=== PATIENT | female | born 1975 | race Caucasian/White ===

== ENCOUNTER 2022-07-17 16:14 | Emergency (ER) | payer OTHER, SELFPAY ==
[2022-07-17 16:22] VITALS: BP 169/96; PULSE 83; RESP 20; TEMP 36.8; O2SAT 97; BMI 48.7
--- NOTE | 2022-07-17 16:49 | CRLHL7_ITS ---
For Patients: As a result of the Century Cures Act, medical imaging exams and procedure reports are released immediately into your electronic medical record. You may view this report before your referring provider. If you have questions, please contact your health care provider. Indication: Right wrist FOOSH injury Technique: Right wrist 3 view. Comparison: None. Findings: There is an acute comminuted displaced fracture of the distal radius. Fracture lines extend to the articular surface. Radiocarpal alignment appears maintained, however there is suboptimal positioning on lateral view which limits evaluation. Small round corticated osseous density adjacent to the distal ulna appears chronic. Soft tissue swelling about the wrist. Impression: Acute comminuted displaced intra-articular fracture of the distal radius. Dictated by Amanda Sandoval MD @ 07/17/2022 5:42:42 PM (Electronically Signed)
--- NOTE | 2022-07-17 16:50 | ED_ITS ---
HPI - Extremity Injury (Upper) General Chief Complaint: Extremity Pain/Injury, Upper Stated Complaint: POSSIBLE BROKEN RIGHT WRIST Time Seen by Provider: 07/17/22 16:25 History of Present Illness HPI narrative: This 46-year-old female comes in with an injury to her right wrist. She tripped and fell onto her outstretched right hand and felt a snap in her right wrist. She did also bump her head but did not have loss of consciousness. She does report some mild headache. She does not report any other injury. She is not on any anticoagulants. Related Data Home Medications Medication Instructions Recorded Confirmed amitriptyline 25 mg tablet 25 mg PO HS 07/17/22 07/17/22 fluoxetine 10 mg capsule 30 mg PO DAILY 07/17/22 07/17/22 hydroxyzine HCl 25 mg tablet 25 mg PO Q6H PRN 07/17/22 07/17/22 pregabalin 300 mg capsule 300 mg PO Q12H 07/17/22 07/17/22 Allergies Allergy/AdvReac Type Severity Reaction Status Date / Time bee venom protein (honey bee) Allergy Anaphylaxis Verified 07/17/22 16:28 Sulfa (Sulfonamide Allergy Verified 07/17/22 16:28 Antibiotics) acetaminophen [From Vicodin] AdvReac Verified 07/17/22 16:28 hydrocodone [From Vicodin] AdvReac Verified 07/17/22 16:28 Review of Systems Status of ROS: Reports: 10 or more systems reviewed and unremarkable except as noted in History and below Narrative: Constitutional: No fevers, no weight gain or loss. Eyes: No discharge. No vision changes. HENT: No congestion, no sore throat, no ear pain. Cardiovascular: No chest pain, no palpitations. Respiratory: No shortness of breath, no wheezes, no cough. Gastrointestinal: No abdominal pain, no vomiting, no diarrhea. Genitourinary: No dysuria, no hematuria. Musculoskeletal: Right wrist injury with associated decreased range of motion. Skin: No rashes, no pruritis. Neurological: No dizziness, weakness, sensory change, speech change. Endo/Heme/Allergies: No bruising or bleeding. No polydipsia. Pysch: no suicidality, no anxiety, no insomnia. All other systems reviewed and are negative. PFSH PFSH Social History Smoking Status: Unknown if ever smoked Do you use any of these nicotine containing products: None Non-prescribed substance use: denies use Exam Narrative: Exam Narrative: Constitutional: Well-developed, well-nourished, no acute distress. HEENT: Normocephalic, atraumatic. Neck: Normal range of motion. Nontender. Supple. Heart: Regular. No murmurs. Normal rate. Intact distal pulses. Lungs: Clear to auscultation. No chest discomfort. No wheezes, rhonchi, or rales. Abdomen: Normal bowel sounds. Nontender. No rebound tenderness. Genitalia: Deferred. Back: No midline tenderness. Normal range of motion. Extremities: Severe pain in the right wrist with unwillingness to move the wrist joint or fingers. There is diffuse swelling and no obvious external sign of deformity. Skin: Intact. No rash. Warm. No erythema or pallor. Neurologic: No altered sensation. No weakness. Alert and oriented. Psychiatric: No suicidality. No anxiety or depression. No insomnia. Nursing notes and vitals signs are reviewed. Const: Vital Signs, click to edit/add: Vital Signs - 24 hr 07/17/22 16:22 Temperature 98.3 F Pulse Rate [Right Femoral] 83 Respiratory Rate 20 Blood Pressure [Le ft Upper Arm] 169/96 H Pulse Oximetry 97 Oxygen Delivery Me thod Room Air Course Vital Signs Vital signs: Initial Vital Signs Temperature 98.3 F 07/17/22 16:22 Temperature Source Temporal Artery Scan 07/17/22 16:22 Pulse Rate 83 07/17/22 16:22 Respiratory Rate 20 07/17/22 16:22 Blood Pressure 169/96 H 07/17/22 16:22 Blood Pressure Mean 120 07/17/22 16:22 Pulse Oximetry 97 07/17/22 16:22 Oxygen Delivery Method 07/17/22 16:22 Vital Signs Temperature 98.3 F 07/17/22 16:22 Pulse Rate 83 07/17/22 16:22 Respiratory Rate 20 07/17/22 16:22 Blood Pressure 169/96 H 07/17/22 16:22 Pulse Oximetry 97 07/17/22 16:22 Oxygen Delivery Method 07/17/22 16:22 Temperature 98.3 F 07/17/22 16:22 Pulse Rate 83 07/17/22 16:22 Respiratory Rate 20 07/17/22 16:22 Blood Pressure 169/96 H 07/17/22 16:22 Pulse Oximetry 97 07/17/22 16:22 Oxygen Delivery Method 07/17/22 16:22 MDM - Extremity Injury (Upper) MDM Narrative Medical decision making narrative: This patient comes in with an injury to her right wrist. X-ray images show an acute comminuted intra-articular fracture of the distal radius. The alignment is reasonably good for now so no adjustment was done before placing North a glass splint. The patient is instructed to follow-up with orthopedic clinic for further evaluation and management of this injury. An appointment is arranged with orthopedic clinic for this to occur. The patient did receive an oral tablet of oxycodone and a prescription for more of the same. An ortho glass splint that was applied by me also brought significant pain relief. Additionally she also received a sling for her right upper extremity. Imaging Data XR R Wrist: Radiologist's impression: Acute comminuted displaced intra-articular fracture of the distal radius. Discharge Plan Discharge Clinical Impression: Fracture of wrist Patient Disposition: Home, Self-Care Condition: Unchanged Instructions: Wrist Fracture in Adults (ED) Additional Instructions: Wear splint and sling. Follow-up with orthopedic clinic as scheduled. Use pain medicine as needed and directed. Prescriptions: No Action amitriptyline 25 mg tablet 25 mg PO HS Label Comments: TAKE ONE TABLET BY MOUTH ONE TIME DAILY AT BEDTIME fluoxetine 10 mg capsule 30 mg PO DAILY Label Comments: TAKE THREE CAPSULES BY MOUTH DAILY hydroxyzine HCl 25 mg tablet 25 mg PO Q6H PRN Label Comments: TAKE ONE OR TWO TABLETS BY MOUTH EVERY SIX HOURS NEEDED FOR ANXIETY pregabalin 300 mg capsule 300 mg PO Q12H Label Comments: TAKE ONE CAPSULE BY MOUTH TWICE DAILY Follow Up/Referrals: Vannesa Chris PA [Primary Care Provider] - Stand Alone Forms: [facility] Info Instructions
[2022-07-17] MEDS: OXYCODONE 5 MG TABLET PO (17:31)
== END 2022-07-17 18:23 | disposition home or self-care (01) ==
PROVIDERS: Emergency Provider Emergency Medicine Emergency Medical Services; PCP Physician Assistant
DX: S52.571A Other intraarticular fracture of lower end of right radius, initial encounter for closed fracture (principal); W19.XXXA Unspecified fall, initial encounter
CPT/HCPCS: 29125; 73110; 99284; A0998; A9270

== ENCOUNTER 2022-07-27 08:35 | Day surgery (SDC) | payer OTHER, SELFPAY ==
[2022-07-27] VITALS (12 sets, daily range): BP systolic 148–181; BP diastolic 77–117; PULSE 63–77; RESP 14–16; TEMP 35.9–36.3; O2SAT 94–100; BMI 48.9
[2022-07-27] MEDS: SODIUM CHLORIDE 0.9 % (FLUSH) 10 ML SYRINGE IVF (09:45)
[2022-07-27] MEDS: LACTATED RINGERS 1000 ML 1,000 ML 100 ML IV (09:45)
[2022-07-27] MEDS: MIDAZOLAM HCL 1 MG/ML inj IVP (09:49)
[2022-07-27] MEDS: fentaNYL 100 MCG/2 ML inj IVP (09:49)
--- NOTE | 2022-07-27 09:49 | CRLHL7_ITS ---
For Patients: As a result of the Cures Act, medical imaging exams and procedure reports are released immediately into your electronic medical record. You may view this report before your referring provider. If you have questions, please contact your health care provider. Indication: ORIF LEFT WRIST Technique: Two fluoroscopic images of the right wrist. Fluoroscopic time 6.7 seconds. IMPRESSION: Fluoroscopic guidance for ORIF distal radial fracture. Dictated by Roman Chapman MD @ 07/27/2022 12:11:10 PM (Electronically Signed)
--- NOTE | 2022-07-27 09:51 | SUR.PREOP ---
TIME?OUT:?48 PT/RN/MDA?VERIFICATION?OF?SURGICAL?SITE,?PROCEDURE,?AND?CONSENT OBTAINED?PRIOR?TO?INVASIVE?PROCEDURE.
--- NOTE | 2022-07-27 09:55 | P.NB_ITS ---
Nerve Block Nerve Block Time Seen by Provider: 09:55 Date Seen: 07/27/22 Type of block requested by surgeon for post-operative analgesia: axillary Side: right Time out performed: Yes Verification of patient name: Yes Verification of date of : Yes Site marking: site marked Name of person performing procedure: Josef Continuous monitoring Was continuous monitoring of O2 sat, B/P, threat monitoring analyst, recorded every 15 minutes?: Yes Procedure Checklist: sterile prep, needles and gloves Ultrasound guided. Images saved: Yes Medications given in 5ml increments after negative aspiration: Ropivicaine %: 0.5 mL: 30 Needle gauge: 22 Patient tolerated procedure well: Yes Additional comments: Needle noted adjacent to nerve Block Charges Block Charge (with Pro Fee): Brachial Plexus Use of Ultrasound Machine for Block: Yes- US Guidance/pain block
--- NOTE | 2022-07-27 11:32 | W.ANESCHARGE ---
Anesthesia Charges Start Date/Time Anesthesia Start Date: 07/27/22 Anesthesia Start Time: 10:59 Stop Date/Time Anesthesia Stop Date: 07/27/22 Anesthesia Stop Time: 12:48 Summary Emergency: No
--- NOTE | 2022-07-27 12:13 | PM.ORPRC ---
Procedure Note Date of procedure: 07/27/22 Procedure: PREOPERATIVE DIAGNOSES: 1. Right distal radius fracture intra-articular, dorsally angulated and displaced, intra-articular step-off, unstable POSTOPERATIVE DIAGNOSES: 1. Right distal radius fracture intra-articular, dorsally angulated and displaced, intra-articular step-off, unstable NAME OF OPERATION: 1. Right distal radius open reduction with internal fixation of intraarticular fracture (3+ parts) 2. 75022 - intraoperative fluoroscopy up to 1 hour. SURGEON: oYgesh Elliott MD ELECTROTYPE MOLDER: Jarod Enrique PA-C - Of note, an pediatric physical therapy assistant was critical for this case to aide in patient positioning, limb manipulation, tissue retraction, closure, and splinting. ANESTHESIA: Supraclavicular block IMPLANTS: Arthrex distal radius locking plate with 2.0mm distal locking pegs and 3.5mm proximal nonlocking and locking screws. TOURNIQUET: 36 minutes at 250 torr. INDICATIONS: The patient is a pleasant, 46-year-old female who sustained a right wrist injury after a fall. They had difficulty with use of the extremity and deformity. Workup included xrays which revealed an unstable fracture. Given these findings, surgery was recommended to stablize the fracture. FINDINGS: Closed, comminuted, displaced, intra-articular distal radius fracture. PROCEDURE: Following a thorough discussion of risks, benefits, and alternatives, consent was obtained and the operative extremity was marked. The patient was brought to the operating room and placed supine on the operating table. Induction of anesthesia was achieved. Appropriate time out was performed identifying proper patient, site and procedure. 3 g IV Ancef was administered within 1 hour of incision preoperatively. The right upper extremity was prepped and draped in the appropriate sterile fashion using ChloraPrep prep. The limb was exsanguinated and the tourniquet inflated. A longitudinal incision was made overlying the FCR tendon. Sharp incision through skin and subcutaneous tissue allowed identification of the FCR tendon. The superficial sheath was sharply divided, the tendon retracted ulnarly, and the deep fascial sheath also released. The FPL was retracted ulnarly and the pronator quadratus was sharply released from the radial border of the radius and subperiosteally elevated. The fracture was encountered and cleared of interposed periosteum / fracture hematoma. A reduction was performed and the appropriate plate selected. Temporary stabilization allowed C-arm fluoroscopy to confirm proper fracture reduction and plate positioning. The oblong hole was filled with a nonlocking screw followed by multiple distal locking pegs being careful to keep these in subchondral bone and extraarticular. Finally, the remaining proximal shaft screws were drilled and placed. Fluoroscopic imaging confirmed the improved position and showed the fracture to be stable. At this stage, the wound was thoroughly irrigated with normal saline. Closure performed with 0 Vicryl for the pronator quadratus, followed by deflation of the tourniquet. All major bleeding points were cauterized. Closure was then completed with 3-0 Vicryl for the subcutaneous, and 4-0 statafix for subcuticular closure. Dressings were applied along with a volar/dorsal splint. The patient was awoken from anesthesia and transferred to PACU in stable condition. PLAN: 1. Elevate operative extremity. 2. Ice, acetominphen or ibuprofen PRN. 3. Percocet for pain as needed. 4. Follow up with me in 7-12 days for wound check and splint removal and cast application. Total immobilization time should be 3 weeks. Then, follow-up at the 3 week [facility] for cast removal and initiation of occupational therapy.
--- NOTE | 2022-07-27 13:18 | W.ANESCHARGE ---
Anesthesia Charges Start Date/Time Anesthesia Start Date: 07/27/22 Anesthesia Start Time: 10:59 Stop Date/Time Anesthesia Stop Date: 07/27/22 Anesthesia Stop Time: 12:48 Summary Emergency: No
--- NOTE | 2022-07-27 13:45 | SUR.PHASEII ---
1255: Patient up to bedside commode with stand by assist. Returned to bed with stand by assist.
== END 2022-07-27 23:59 | disposition home or self-care (01) ==
PROVIDERS: PCP Physician Assistant; Visit Provider Orthopaedic Surgery Sports Medicine
PROC: (CPT 25575; principal; 2022-07-27 10:00)
DX: S52.571A Other intraarticular fracture of lower end of right radius, initial encounter for closed fracture (principal)
CPT/HCPCS: 25609; 01830; 64415; 73100; 76942; A4580; C1713; J2250; J2704; J2795; J3010; J7120